=== PATIENT | female | born 1940 | race Caucasian/White ===

== ENCOUNTER 2019-06-29 13:17 | Outpatient (CLI) | payer MEDICARE, BC ==
[~2019-06-29 13:17] MED LIST: ACIDOPHILUS100 MG PO; BETA1TAB20 PO; BIOT1CAP3 PO; CALC600T14 PO; CELE-193 PO; CYAN1TAB41 PO; DOXY40CP; EPIN0.3P3 IM; ERGO500014 PO; ESTR1.5T5 PO; GINK120C PO; GLUC-133 PO; HYDR-3964 PO; HYDR12.5 PO; LORA10TA7 PO; MAGN400C PO; MULT-1085 PO; OMEG500C PO; PREN1TAB75 PO; TERB250T4 PO
[2019-06-29 14:16] LABS: BASOPHILS # (AUTO) 0.1 X10'3 (0-0.2); BASOPHILS % (AUTO) 0.8 % (0-1); EOSINOPHILS # (AUTO) 0.2 X10'3 (0-0.9); EOSINOPHILS % (AUTO) 1.8 % (0-6); HEMATOCRIT 37.4 % (35.0-45.0); HEMOGLOBIN 12.3 g/dl (12.0-16.0); LYMPHOCYTES # (AUTO) 1.4 X10'3 (1.1-4.8); LYMPHOCYTES % (AUTO) 14.6 % (21-51); MEAN CORPUSCULAR HEMOGLOBIN 28.5 PG (27.0-31.0); MEAN CORPUSCULAR HGB CONC 32.8 g/dL (33.0-36.5); MEAN CORPUSCULAR VOLUME 86.8 FL (78-98); MEAN PLATELET VOLUME 9.5 FL (7.4-10.4); MONOCYTES # (AUTO) 0.9 X10'3 (0-0.9); MONOCYTES % (AUTO) 9.4 % (2-12); NEUTROPHILS # (AUTO) 6.8 X10'3 (1.8-7.7); NEUTROPHILS % (AUTO) 73.4 % (42-75); PLATELET COUNT 260 X10'3 (140-440); RED BLOOD COUNT 4.31 X10'6 (4.20-5.60); RED CELL DISTRIBUTION WIDTH 13.8 % (11.5-14.5); WHITE BLOOD COUNT 9.3 X10'3 (4.5-11.0)
[2019-06-29 14:34] LABS: ALANINE AMINOTRANSFERASE 113 U/L (12-78); ALBUMIN 3.3 G/DL (3.4-5.0); ALBUMIN/GLOBULIN RATIO 1.1 (1.1-1.5); ALKALINE PHOSPHATASE 216 IU/L (46-116); ANION GAP 4 (8-16); ASPARTATE AMINO TRANSFERASE 46 U/L (10-37); BILIRUBIN,TOTAL 0.4 MG/DL (0.1-1.0); BLOOD UREA NITROGEN 23 MG/DL (7-18); BUN/CREATININE RATIO 26.4 (6.6-38.0); CALCIUM 8.5 MG/DL (8.5-10.1); CHLORIDE 106 MMOL/L (99-107); CREATININE 0.87 MG/DL (0.40-0.90); GLUCOSE 88 MG/DL (70-104); POTASSIUM 3.9 MMOL/L (3.5-5.1); SODIUM 143 MMOL/L (135-145); TOTAL CARBON DIOXIDE 33.4 MMOL/L (24-32); TOTAL PROTEIN 6.4 G/DL (6.4-8.2); eGFR 63 ML/MIN
== END 2019-06-29 23:59 | disposition home or self-care (01) ==
LOC: LAB 13:17
PROVIDERS: ATTEND Phlebology
DX: Z01.812 Encounter for preprocedural laboratory examination (principal); D05.11 Intraductal carcinoma in situ of right breast
CPT/HCPCS: 36415; 80053; 85025

== ENCOUNTER 2019-10-21 17:33 | Inpatient (IN) | payer MEDICARE, BC ==
[~2019-10-21] VITALS: Ht 165.1 cm; Wt 81.0 kg
[2019-10-21 19:22] LABS: BASOPHILS % (AUTO) 0.5 % (0-1); EOSINOPHILS % (AUTO) 0.1 % (0-6); HEMOGLOBIN 11.7 g/dl (12.0-16.0); LYMPHOCYTES # (AUTO) 0.4 X10'3 (1.1-4.8); LYMPHOCYTES % (AUTO) 5.9 % (21-51); MEAN CORPUSCULAR HEMOGLOBIN 28.7 PG (27.0-31.0); MEAN CORPUSCULAR HGB CONC 33.4 g/dL (33.0-36.5); MEAN CORPUSCULAR VOLUME 85.9 FL (78-98); MEAN PLATELET VOLUME 8.8 FL (7.4-10.4); MONOCYTES # (AUTO) 0.3 X10'3 (0-0.9); MONOCYTES % (AUTO) 4.3 % (2-12); NEUTROPHILS # (AUTO) 6.8 X10'3 (1.8-7.7); NEUTROPHILS % (AUTO) 89.2 % (42-75); PLATELET COUNT 221 X10'3 (140-440); RED BLOOD COUNT 4.07 X10'6 (4.20-5.60); RED CELL DISTRIBUTION WIDTH 14.2 % (11.5-14.5); WHITE BLOOD COUNT 7.6 X10'3 (4.5-11.0)
--- NOTE | 2019-10-21 19:26 | NUR ---
pt resting in bed comfortably. pt denies chest pain. certified medical technician assistant in room with pt at this time. Pt has no other request or concerns at this time.
[2019-10-21 19:35] LABS: ALANINE AMINOTRANSFERASE 20 U/L (12-78); ALBUMIN 3.2 G/DL (3.4-5.0); ALBUMIN/GLOBULIN RATIO 1.1 (1.1-1.5); ALKALINE PHOSPHATASE 133 IU/L (46-116); ANION GAP 7 (8-16); ASPARTATE AMINO TRANSFERASE 24 U/L (10-37); BILIRUBIN,TOTAL 0.4 MG/DL (0.1-1.0); BLOOD UREA NITROGEN 17 MG/DL (7-18); BUN/CREATININE RATIO 23.6 (6.6-38.0); CALCIUM 8.5 MG/DL (8.5-10.1); CHLORIDE 107 MMOL/L (99-107); CREATININE 0.72 MG/DL (0.40-0.90); GLUCOSE 119 MG/DL (70-104); POTASSIUM 4.2 MMOL/L (3.5-5.1); SODIUM 143 MMOL/L (135-145); TOTAL CARBON DIOXIDE 28.7 MMOL/L (24-32); TOTAL PROTEIN 6.1 G/DL (6.4-8.2); eGFR 78 ML/MIN
[2019-10-21 19:39] LABS: TROPONIN I < 0.04 NG/ML (0.0-0.05)
[2019-10-21 20:56] LABS: CLARITY,URINE CLEAR (Clear); COLOR,URINE YELLOW (Yellow); GLUCOSE, URINE NEGATIVE (Neg); KETONES,URINE 15 mg/dl (Neg); LEUKOCYTE ESTERASE ,URINE NEGATIVE (Neg); NITRITES, URINE NEGATIVE (Neg); OCCULT BLOOD,URINE NEGATIVE (Neg); PH,URINE 5.5 (4.8-8.0); PROTEIN,URINE NEGATIVE (Neg); UROBILINOGEN,URINE 0.2 E.U/dL (0.2-1.0)
[2019-10-21 20:58] LABS: UA COLLECTION TYPE CLN CATCH MIDSTREAM
--- NOTE | 2019-10-21 21:15 | NUR ---
pt has been placed up for admission - she continues to have episodes where her heart rate dips into the 40's - pt remains on school lunch monitor. will continue to monitor.
[2019-10-21] MEDS ORDERED: TAMO20TA4 PO (21:29)
[2019-10-21] MEDS ORDERED: ASPI-1130 PO (21:29)
[2019-10-21] MEDS ORDERED: IBAN150T21 PO (21:29)
[2019-10-21] MEDS ORDERED: acetaminophen 325mg tablet PO PRN (23:30)
[2019-10-21] MEDS ORDERED: mag hydrox/Alum hydrox/simeth 30ml oral suspension PO PRN (23:30)
[2019-10-21] MEDS ORDERED: magnesium Cl slow-release 64mg tablet PO PRN (23:30)
[2019-10-21] MEDS ORDERED: potassium CL 10mEq/100ml bag 100 ML IV PRN ×2 (23:30)
[2019-10-21] MEDS ORDERED: potassium Cl 20 mEq SR tablet PO PRN ×2 (23:30)
[2019-10-21] MEDS ORDERED: ondansetron/PF 4mg/2ml inj IV PRN (23:30)
[2019-10-21] MEDS ORDERED: magnesium 4gm in 100ml NS 100 ML IV PRN (23:30)
[2019-10-21] MEDS ORDERED: magnesium 2GM in 50ml NS 50 ML IV PRN (23:30)
[2019-10-21] MEDS ORDERED: magnesium hydroxide 30ml (MOM) UD suspension PO PRN (23:30)
[2019-10-21] MEDS ORDERED: ergocalciferol (Vitamin D) 50,000 unit capsule PO SCH (23:30)
[2019-10-21] MEDS ORDERED: HYDROcodone/acetaminophen 5mg/325mg tablet PO PRN (23:30)
[2019-10-21 23:52] LABS: HEMOGLOBIN A1C 5.6 % (4.5-6.2)
--- NOTE | 2019-10-21 23:56 | NUR ---
NOTIFIED BY PHARMACY THAT MED REC WAS NOT CONSISTENT WITH PATIENT'S CURRENT PRESCRIPTIONS CONFIRMED WITH DR STEPHENS AND ORDERS CHANGED ACCORDINGLY
--- NOTE | 2019-10-22 00:02 | NUR ---
Patient in room . I have received report from Nancy REYES and had the opportunity to ask questions and assume patient care.
[2019-10-22 01:00] VITALS: BP 162/56
[2019-10-22 01:30] LABS: BASOPHILS # (AUTO) 0.1 X10'3 (0-0.2); BASOPHILS % (AUTO) 1.2 % (0-1); EOSINOPHILS % (AUTO) 0.3 % (0-6); HEMATOCRIT 35.5 % (35.0-45.0); LYMPHOCYTES # (AUTO) 0.9 X10'3 (1.1-4.8); LYMPHOCYTES % (AUTO) 12.4 % (21-51); MEAN CORPUSCULAR HEMOGLOBIN 28.8 PG (27.0-31.0); MEAN CORPUSCULAR VOLUME 84.7 FL (78-98); MEAN PLATELET VOLUME 8.6 FL (7.4-10.4); MONOCYTES # (AUTO) 0.7 X10'3 (0-0.9); MONOCYTES % (AUTO) 10.2 % (2-12); NEUTROPHILS # (AUTO) 5.5 X10'3 (1.8-7.7); NEUTROPHILS % (AUTO) 75.9 % (42-75); PLATELET COUNT 242 X10'3 (140-440); RED BLOOD COUNT 4.19 X10'6 (4.20-5.60); RED CELL DISTRIBUTION WIDTH 14.4 % (11.5-14.5); WHITE BLOOD COUNT 7.2 X10'3 (4.5-11.0)
[2019-10-22 02:00] VITALS: BP 104/56
--- NOTE | 2019-10-22 06:29 | NUR ---
Patient in room PCU 3017. I have received report from Destiny REYES and had the opportunity to ask questions and assume patient care.
--- NOTE | 2019-10-22 06:29 | NUR ---
Problems reprioritized. Patient report given, questions answered & plan of care reviewed with Louie REYES.
[2019-10-22 07:00] VITALS: BP 155/58
[2019-10-22] MEDS: HYDROchlorothiazide 25mg tablet PO SCH (07:22)
[2019-10-22] MEDS: aspirin 81mg tablet.DR PO SCH (07:22)
[2019-10-22] MEDS: multivitamins, therapeutics tablet PO SCH (07:22)
[2019-10-22] MEDS: celeCOXIB 100mg capsule PO SCH (07:23)
[2019-10-22] MEDS: magnesium oxide 400mg tablet PO SCH (07:23)
[2019-10-22] MEDS: heparin, porcine 5000 units/ml vial SQ SCH ×2 (07:24→21:04)
[2019-10-22] MEDS ORDERED: HYDROchlorothiazide 12.5mg capsule PO SCH (08:00)
[2019-10-22] MEDS: K and/or MAG REPLACEMENT MC SCH (08:00)
[2019-10-22 10:22] LABS: ALANINE AMINOTRANSFERASE 21 U/L (12-78); ALBUMIN/GLOBULIN RATIO 1.1 (1.1-1.5); ALKALINE PHOSPHATASE 122 IU/L (46-116); ANION GAP 8 (8-16); ASPARTATE AMINO TRANSFERASE 20 U/L (10-37); BILIRUBIN,TOTAL 0.4 MG/DL (0.1-1.0); BLOOD UREA NITROGEN 15 MG/DL (7-18); BUN/CREATININE RATIO 15.8 (6.6-38.0); CALCIUM 8.5 MG/DL (8.5-10.1); CHLORIDE 108 MMOL/L (99-107); CREATININE 0.95 MG/DL (0.40-0.90); GLUCOSE 151 MG/DL (70-104); SODIUM 143 MMOL/L (135-145); TOTAL CARBON DIOXIDE 26.6 MMOL/L (24-32); TOTAL PROTEIN 5.8 G/DL (6.4-8.2); eGFR 57 ML/MIN
[2019-10-22 10:25] LABS: CHOL/HDL RATIO 1.8 (0.00-4.99); CHOLESTEROL 177 MG/DL (0-200); HDL CHOLESTEROL 101 MG/DL (35-60); LDL CHOLESTEROL 63 MG/DL (50-100); TRIGLYCERIDES 22 MG/DL (20-135)
[2019-10-22 10:37] LABS: POTASSIUM 3.7 MMOL/L (3.5-5.1)
[2019-10-22 11:00] VITALS: BP 157/56
[2019-10-22 15:00] VITALS: BP 144/53
--- NOTE | 2019-10-22 19:05 | NUR ---
Problems reprioritized. Patient report given, questions answered & plan of care reviewed with Sina REYES.
--- NOTE | 2019-10-22 19:30 | NUR ---
The patient went for [facility] Cath. Patient was alert, oriented x4. Not on any kind of distress. Gave report to energy systems laboratory director.
[2019-10-22 20:00] VITALS: BP 155/56
[2019-10-23] VITALS (15 sets, daily range): BP systolic 137–180; BP diastolic 41–88
[2019-10-23 05:48] LABS: BASOPHILS % (AUTO) 0.3 % (0-1); EOSINOPHILS # (AUTO) 0.2 X10'3 (0-0.9); EOSINOPHILS % (AUTO) 3.4 % (0-6); HEMATOCRIT 37.7 % (35.0-45.0); HEMOGLOBIN 12.8 g/dl (12.0-16.0); LYMPHOCYTES % (AUTO) 18.8 % (21-51); MEAN CORPUSCULAR HEMOGLOBIN 28.7 PG (27.0-31.0); MEAN CORPUSCULAR VOLUME 84.4 FL (78-98); MEAN PLATELET VOLUME 8.8 FL (7.4-10.4); MONOCYTES # (AUTO) 0.7 X10'3 (0-0.9); MONOCYTES % (AUTO) 13.8 % (2-12); NEUTROPHILS # (AUTO) 3.3 X10'3 (1.8-7.7); NEUTROPHILS % (AUTO) 63.7 % (42-75); PLATELET COUNT 242 X10'3 (140-440); RED BLOOD COUNT 4.46 X10'6 (4.20-5.60); RED CELL DISTRIBUTION WIDTH 14.5 % (11.5-14.5); WHITE BLOOD COUNT 5.2 X10'3 (4.5-11.0)
[2019-10-23 06:20] LABS: ALANINE AMINOTRANSFERASE 20 U/L (12-78); ALBUMIN 3.1 G/DL (3.4-5.0); ALBUMIN/GLOBULIN RATIO 1.1 (1.1-1.5); ALKALINE PHOSPHATASE 118 IU/L (46-116); ANION GAP 7 (8-16); ASPARTATE AMINO TRANSFERASE 21 U/L (10-37); BILIRUBIN,TOTAL 0.5 MG/DL (0.1-1.0); BLOOD UREA NITROGEN 16 MG/DL (7-18); BUN/CREATININE RATIO 21.6 (6.6-38.0); CALCIUM 8.8 MG/DL (8.5-10.1); CHLORIDE 107 MMOL/L (99-107); CREATININE 0.74 MG/DL (0.40-0.90); GLUCOSE 90 MG/DL (70-104); MAGNESIUM 2.1 MG/DL (1.5-2.4); POTASSIUM 3.6 MMOL/L (3.5-5.1); SODIUM 145 MMOL/L (135-145); TOTAL CARBON DIOXIDE 31.1 MMOL/L (24-32); eGFR 76 ML/MIN
--- NOTE | 2019-10-23 06:33 | NUR ---
Problems reprioritized. Patient report given to JackelynRN, questions answered & plan of care reviewed with .
--- NOTE | 2019-10-23 06:44 | NUR ---
Patient in room MED 315. I have received report from AMY Boyd and had the opportunity to ask questions and assume patient care.
[2019-10-23] MEDS: heparin, porcine 5000 units/ml vial SQ SCH ×2 (07:32→21:08)
[2019-10-23] MEDS: celeCOXIB 100mg capsule PO SCH (07:32)
[2019-10-23] MEDS: multivitamins, therapeutics tablet PO SCH (07:32)
[2019-10-23] MEDS: aspirin 81mg tablet.DR PO SCH (07:32)
[2019-10-23] MEDS: magnesium oxide 400mg tablet PO SCH (07:33)
[2019-10-23] MEDS: HYDROchlorothiazide 25mg tablet PO SCH (07:33)
[2019-10-23] MEDS: K and/or MAG REPLACEMENT MC SCH (08:00)
[2019-10-23] MEDS: amLODIPine 5mg tablet PO SCH (10:07)
[2019-10-23] MEDS ORDERED: LIDOcaine 0.5% W/epiNEPHrine 1:200,000 50ml vial IJ ONE (16:56)
[2019-10-23] MEDS ORDERED: ceFAZolin 1000mg inj ONE ×3 (16:56→17:38)
[2019-10-23] MEDS ORDERED: hydrALAZINE 20mg/ml inj. IV PRN (17:25)
[2019-10-23] MEDS ORDERED: fentaNYL/PF 50MCG/1 ML 2ML syringe IV PRN ×2 (17:25)
[2019-10-23] MEDS ORDERED: ringers solution, lacted 1,000 ML IV SCH (17:25)
[2019-10-23] MEDS ORDERED: ondansetron/PF 4mg/2ml inj IV PRN (17:25)
[2019-10-23] MEDS ORDERED: enalaprilat dihydrate 2.5mg/2ml vial IV PRN (17:25)
[2019-10-23] MEDS ORDERED: morphine 4 MG/ML inj SYRINge IV PRN ×2 (17:25)
[2019-10-23] MEDS ORDERED: fentaNYL/PF 50MCG/1 ML 2ML syringe ONE ×2 (17:35)
[2019-10-23] MEDS ORDERED: MIDAZolam 5mg/ml 2ml vial ONE (17:38)
--- NOTE | 2019-10-23 17:44 | NUR ---
pt. taken to pacemaker procedure at 1700.
--- NOTE | 2019-10-23 18:43 | NUR ---
Problems reprioritized. Patient report given, questions answered & plan of care reviewed with AMY Boyd.
--- NOTE | 2019-10-23 18:43 | NUR ---
Patient in room MED 315. I have received report from Cait Anand and had the opportunity to ask questions and assume patient care.
--- NOTE | 2019-10-23 18:48 | NUR ---
Received from OR via SURGICAL BED , accompanied by Anesthesiologist KAUSHIK and report given by Anesthesiolgist. PATIENT WITH 20G PIV IN LEFT UE RUNNING LR AT 100. DENIES PAIN. LEFT CHEST WALL DRESSING IS CDI. PATIENT WITH 10L MASK ON WITH NO C.O. PAIN AT THIS TIME. SCDS DONNED. Addendum: 10/23/19 at 1859 by Hermes Gruber RN, RN Amended: Links added.
--- NOTE | 2019-10-23 19:18 | NUR ---
ALL CRITERIA FOR TRANSFER TO THE FLOOR HAS BEEN ACHIEVED. VSS. BED LOW, CALL LIGHT AND VS. SET IN PLACE. RN PRESENT TO ACCEPT CARE. PATIENT RESTING COMFORTABLY IN BED. BELONGINGS SENT WITH PATIENT. DRESSINGS CDI. AMY GANT PRESENT TO ACCEPT CARE. VSS. PATIENT ALERT AND TALKATIVE. CARE ASSUMED BY AMY GANT. Addendum: 10/23/19 at 1921 by Hermes Quiroz - AMY REYES Amended: Links added.
[2019-10-24] VITALS (8 sets, daily range): BP systolic 108–166; BP diastolic 45–82
[2019-10-24 05:12] LABS: BASOPHILS # (AUTO) 0.1 X10'3 (0-0.2); BASOPHILS % (AUTO) 0.8 % (0-1); EOSINOPHILS # (AUTO) 0.1 X10'3 (0-0.9); LYMPHOCYTES # (AUTO) 0.7 X10'3 (1.1-4.8); LYMPHOCYTES % (AUTO) 11.7 % (21-51); MEAN CORPUSCULAR HEMOGLOBIN 28.6 PG (27.0-31.0); MEAN CORPUSCULAR HGB CONC 33.3 g/dL (33.0-36.5); MEAN CORPUSCULAR VOLUME 85.9 FL (78-98); MEAN PLATELET VOLUME 8.8 FL (7.4-10.4); MONOCYTES # (AUTO) 0.7 X10'3 (0-0.9); MONOCYTES % (AUTO) 11.6 % (2-12); NEUTROPHILS # (AUTO) 4.7 X10'3 (1.8-7.7); NEUTROPHILS % (AUTO) 73.9 % (42-75); PLATELET COUNT 226 X10'3 (140-440); RED BLOOD COUNT 4.54 X10'6 (4.20-5.60); RED CELL DISTRIBUTION WIDTH 14.3 % (11.5-14.5); WHITE BLOOD COUNT 6.4 X10'3 (4.5-11.0)
[2019-10-24 05:41] LABS: ALANINE AMINOTRANSFERASE 16 U/L (12-78); ALKALINE PHOSPHATASE 111 IU/L (46-116); ANION GAP 7 (8-16); ASPARTATE AMINO TRANSFERASE 20 U/L (10-37); BILIRUBIN,TOTAL 0.5 MG/DL (0.1-1.0); BLOOD UREA NITROGEN 11 MG/DL (7-18); BUN/CREATININE RATIO 18.3 (6.6-38.0); CALCIUM 8.5 MG/DL (8.5-10.1); CHLORIDE 106 MMOL/L (99-107); GLUCOSE 88 MG/DL (70-104); POTASSIUM 3.6 MMOL/L (3.5-5.1); SODIUM 143 MMOL/L (135-145); TOTAL CARBON DIOXIDE 29.7 MMOL/L (24-32); TOTAL PROTEIN 5.9 G/DL (6.4-8.2); eGFR > 90 ML/MIN
--- NOTE | 2019-10-24 06:30 | NUR ---
Patient in room MED 315. I have received report from Oliver REYES and had the opportunity to ask questions and assume patient care.
--- NOTE | 2019-10-24 06:35 | NUR ---
Problems reprioritized. Patient report given, questions answered & plan of care reviewed with Desirae REYES.
[2019-10-24] MEDS: amLODIPine 5mg tablet PO SCH (07:31)
[2019-10-24] MEDS: HYDROchlorothiazide 25mg tablet PO SCH (07:31)
[2019-10-24] MEDS: aspirin 81mg tablet.DR PO SCH (07:31)
[2019-10-24] MEDS: multivitamins, therapeutics tablet PO SCH (07:31)
[2019-10-24] MEDS: magnesium oxide 400mg tablet PO SCH (07:31)
[2019-10-24] MEDS: celeCOXIB 100mg capsule PO SCH (07:31)
[2019-10-24] MEDS: K and/or MAG REPLACEMENT MC SCH (07:33)
[2019-10-24] MEDS: heparin, porcine 5000 units/ml vial SQ SCH ×2 (07:33→20:23)
--- NOTE | 2019-10-24 12:39 | NUR ---
PAGER ID: [phone] MESSAGE: 315: MONE - S/P PPM. OK to d/c heparin and start SCDs? dr. Medina not answering. keiry Merrill [phone]
[2019-10-24] MEDS: lisinopril 5mg tablet PO SCH (13:07)
--- NOTE | 2019-10-24 18:00 | NUR ---
Patient in room MED 315. I have received report from Desirae REYES and had the opportunity to ask questions and assume patient care.
--- NOTE | 2019-10-24 18:20 | NUR ---
Problems reprioritized. Patient report given, questions answered & plan of care reviewed with Keri REYES.
--- NOTE | 2019-10-24 23:12 | NUR ---
TOOL AND DIE DESIGNER NOTIFIED PATIENT PLACED ON TELE #[phone]
[2019-10-25 02:00] VITALS: BP 127/44
[2019-10-25 03:27] LABS: BASOPHILS # (AUTO) 0.1 X10'3 (0-0.2); BASOPHILS % (AUTO) 0.8 % (0-1); EOSINOPHILS # (AUTO) 0.2 X10'3 (0-0.9); EOSINOPHILS % (AUTO) 1.7 % (0-6); HEMATOCRIT 37.5 % (35.0-45.0); HEMOGLOBIN 12.5 g/dl (12.0-16.0); LYMPHOCYTES # (AUTO) 0.9 X10'3 (1.1-4.8); LYMPHOCYTES % (AUTO) 10.5 % (21-51); MEAN CORPUSCULAR HEMOGLOBIN 28.5 PG (27.0-31.0); MEAN CORPUSCULAR HGB CONC 33.3 g/dL (33.0-36.5); MEAN CORPUSCULAR VOLUME 85.4 FL (78-98); MEAN PLATELET VOLUME 8.6 FL (7.4-10.4); MONOCYTES % (AUTO) 10.8 % (2-12); NEUTROPHILS # (AUTO) 6.8 X10'3 (1.8-7.7); NEUTROPHILS % (AUTO) 76.2 % (42-75); PLATELET COUNT 223 X10'3 (140-440); RED BLOOD COUNT 4.39 X10'6 (4.20-5.60); RED CELL DISTRIBUTION WIDTH 14.3 % (11.5-14.5); WHITE BLOOD COUNT 8.9 X10'3 (4.5-11.0)
[2019-10-25 03:35] LABS: CHLORIDE 106 MMOL/L (99-107); MAGNESIUM 2.3 MG/DL (1.5-2.4); POTASSIUM 3.5 MMOL/L (3.5-5.1); SODIUM 142 MMOL/L (135-145)
[2019-10-25 03:55] LABS: ALANINE AMINOTRANSFERASE 15 U/L (12-78); ALBUMIN 2.9 G/DL (3.4-5.0); ALKALINE PHOSPHATASE 113 IU/L (46-116); ANION GAP 7 (8-16); ASPARTATE AMINO TRANSFERASE 17 U/L (10-37); BILIRUBIN,TOTAL 0.4 MG/DL (0.1-1.0); BLOOD UREA NITROGEN 23 MG/DL (7-18); BUN/CREATININE RATIO 30.7 (6.6-38.0); CALCIUM 8.4 MG/DL (8.5-10.1); CREATININE 0.75 MG/DL (0.40-0.90); GLUCOSE 102 MG/DL (70-104); TOTAL CARBON DIOXIDE 29.5 MMOL/L (24-32); TOTAL PROTEIN 5.7 G/DL (6.4-8.2); eGFR 75 ML/MIN
--- NOTE | 2019-10-25 06:00 | NUR ---
Problems reprioritized. Patient report given, questions answered & plan of care reviewed with BLANCA REYES.
--- NOTE | 2019-10-25 06:25 | NUR ---
Patient in room MED 315. I have received report from Keri REYES and had the opportunity to ask questions and assume patient care.
[2019-10-25 06:30] VITALS: BP 142/50
[2019-10-25] MEDS: magnesium oxide 400mg tablet PO SCH ×2 (08:00→08:10)
[2019-10-25] MEDS: K and/or MAG REPLACEMENT MC SCH (08:00)
[2019-10-25] MEDS: heparin, porcine 5000 units/ml vial SQ SCH (08:00)
[2019-10-25] MEDS: amLODIPine 5mg tablet PO SCH (08:10)
[2019-10-25] MEDS: multivitamins, therapeutics tablet PO SCH (08:10)
[2019-10-25] MEDS: HYDROchlorothiazide 25mg tablet PO SCH (08:10)
[2019-10-25] MEDS: celeCOXIB 100mg capsule PO SCH (08:10)
[2019-10-25] MEDS: lisinopril 5mg tablet PO SCH (08:10)
[2019-10-25] MEDS: aspirin 81mg tablet.DR PO SCH (08:10)
[2019-10-25] MEDS ORDERED: LISI-642 PO (10:10)
[2019-10-25] MEDS ORDERED: NOR5T PO (10:10)
[2019-10-25] MEDS ORDERED: CEPH500C5 PO (10:13)
[2019-10-25 11:00] VITALS: BP 114/47
--- NOTE | 2019-10-25 14:37 | NUR ---
Discussed discharge instructions with patient at this time, verbalized understanding. Discharged patient via W/C per [facility] staff via family private vehicle without event. Belongings sent with patient, IV dc'd, tele dc'd. Son at bedside to transport patient home. Eager to go home, confirmed medications were transmitted to [facility] [address]. Educated patient on need to buy BP cuff to check her blood pressure prior to medication administration. She will call for follow-up appointments with physicians.
[2019-10-27] MEDS ORDERED: ergocalciferol (Vitamin D) 50,000 unit capsule PO SCH (23:30)
== END 2019-10-25 14:37 | disposition home health service (06) | DRG 243 ==
LOC: ER 17:34 → ED HOLD 10-22 00:17 → CMPBEDREQ 10-22 00:21 → PCU 3S 10-22 01:00 → MED 3N 10-22 19:10
PROVIDERS: ADMIT Internal Medicine; ATTEND Family Medicine
PROC: 02H63JZ Insertion of Pacemaker Lead into Right Atrium, Percutaneous Approach (ICD-10-PCS; 2019-10-23)
PROC: 02HK3JZ Insertion of Pacemaker Lead into Right Ventricle, Percutaneous Approach (ICD-10-PCS; 2019-10-23)
PROC: 0JH606Z Insertion of Pacemaker, Dual Chamber into Chest Subcutaneous Tissue and Fascia, Open Approach (ICD-10-PCS; principal; 2019-10-23 17:30)
DX: I49.5 Sick sinus syndrome (principal); E44.0 Moderate protein-calorie malnutrition; C50.911 Malignant neoplasm of unspecified site of right female breast; I10 Essential (primary) hypertension; M81.0 Age-related osteoporosis without current pathological fracture; Z85.820 Personal history of malignant melanoma of skin; Z92.3 Personal history of irradiation; Z91.048 Other nonmedicinal substance allergy status
CPT/HCPCS: 36415; 71045; 71048; 80053; 80061; 81003; 82948; 83036; 83735; 84443; 84484; 85025; 87081; 93005; 93306; 97161; 97530; 99285; A4215; A6258; A7000; C1785; G0378; J0690; J1644; J2250; J3010; J7120

== ENCOUNTER 2020-04-15 16:52 | Emergency (ER) | payer MEDICARE, BC ==
[~2020-04-15] VITALS: Ht 165.1 cm; Wt 72.0 kg
[~2020-04-15 16:52] MED LIST changes: -ACIDOPHILUS100 MG PO; +ASPI-1130 PO; -BETA1TAB20 PO; -BIOT1CAP3 PO; -CALC600T14 PO; -CYAN1TAB41 PO; -DOXY40CP; -ESTR1.5T5 PO; -GINK120C PO; -GLUC-133 PO; -HYDR-3964 PO; +IBAN150T21 PO; +LISI-642 PO; -LORA10TA7 PO; +NOR5T PO; -OMEG500C PO; -PREN1TAB75 PO; +TAMO20TA4 PO; -TERB250T4 PO
[2020-04-15 18:29] LABS: BASOPHILS % (AUTO) 0.6 % (0-1); EOSINOPHILS # (AUTO) 0.1 X10'3 (0-0.9); EOSINOPHILS % (AUTO) 1.4 % (0-6); HEMATOCRIT 41.1 % (35.0-45.0); HEMOGLOBIN 13.6 g/dl (12.0-16.0); LYMPHOCYTES # (AUTO) 1.1 X10'3 (1.1-4.8); LYMPHOCYTES % (AUTO) 16.3 % (21-51); MEAN CORPUSCULAR HEMOGLOBIN 28.4 PG (27.0-31.0); MEAN CORPUSCULAR HGB CONC 33.1 g/dL (33.0-36.5); MEAN CORPUSCULAR VOLUME 85.8 FL (78-98); MEAN PLATELET VOLUME 9.3 FL (7.4-10.4); MONOCYTES # (AUTO) 0.6 X10'3 (0-0.9); MONOCYTES % (AUTO) 9.2 % (2-12); NEUTROPHILS # (AUTO) 4.7 X10'3 (1.8-7.7); NEUTROPHILS % (AUTO) 72.5 % (42-75); PLATELET COUNT 241 X10'3 (140-440); RED BLOOD COUNT 4.79 X10'6 (4.20-5.60); RED CELL DISTRIBUTION WIDTH 14.2 % (11.5-14.5); WHITE BLOOD COUNT 6.5 X10'3 (4.5-11.0)
[2020-04-15 18:46] LABS: ALANINE AMINOTRANSFERASE 17 U/L (12-78); ALBUMIN 3.8 G/DL (3.4-5.0); ALBUMIN/GLOBULIN RATIO 1.2 (1.1-1.5); ALKALINE PHOSPHATASE 133 IU/L (46-116); ANION GAP 7 (8-16); ASPARTATE AMINO TRANSFERASE 25 U/L (10-37); BILIRUBIN,TOTAL 0.4 MG/DL (0.1-1.0); BLOOD UREA NITROGEN 20 MG/DL (7-18); BUN/CREATININE RATIO 21.3 (6.6-38.0); CALCIUM 9.3 MG/DL (8.5-10.1); CHLORIDE 103 MMOL/L (99-107); CREATININE 0.94 MG/DL (0.40-0.90); GLUCOSE 104 MG/DL (70-104); POTASSIUM 3.5 MMOL/L (3.5-5.1); SODIUM 143 MMOL/L (135-145); TOTAL CARBON DIOXIDE 32.7 MMOL/L (24-32); TOTAL PROTEIN 7.1 G/DL (6.4-8.2); eGFR 58 ML/MIN
[2020-04-15 20:39] LABS: CLARITY,URINE CLEAR (Clear); COLOR,URINE YELLOW (Yellow); GLUCOSE, URINE NEGATIVE (Neg); KETONES,URINE NEGATIVE (Neg); LEUKOCYTE ESTERASE ,URINE NEGATIVE (Neg); NITRITES, URINE NEGATIVE (Neg); OCCULT BLOOD,URINE NEGATIVE (Neg); PROTEIN,URINE NEGATIVE (Neg); UA COLLECTION TYPE CLN CATCH MIDSTREAM; UROBILINOGEN,URINE 0.2 E.U/dL (0.2-1.0)
[2020-04-15 21:50] VITALS: BP 144/77
== END 2020-04-15 21:52 | disposition home or self-care (01) ==
LOC: ER 16:52
DX: I95.1 Orthostatic hypotension (principal); R42 Dizziness and giddiness; M81.0 Age-related osteoporosis without current pathological fracture; Z98.890 Other specified postprocedural states; Z91.048 Other nonmedicinal substance allergy status; Z88.8 Allergy status to other drugs, medicaments and biological substances; Z79.2 Long term (current) use of antibiotics; Z79.899 Other long term (current) drug therapy
CPT/HCPCS: 36415; 71045; 80053; 81003; 84484; 85025; 93005; 99285

== ENCOUNTER 2021-06-09 11:03 | Emergency (ER) | payer MEDICARE, BC ==
[~2021-06-09] VITALS: Ht 165.1 cm; Wt 79.6 kg
[~2021-06-09 11:03] MED LIST changes: -ASPI-1130 PO; +ASPI-1397 PO
[2021-06-09 11:14] VITALS: BP 169/67
== END 2021-06-09 18:58 | disposition left against medical advice (07) ==
LOC: ER 11:04
DX: R10.9 Unspecified abdominal pain (principal); Z53.21 Procedure and treatment not carried out due to patient leaving prior to being seen by health care provider

== ENCOUNTER 2021-08-01 09:35 | Day surgery (SDC) | payer MEDICARE, BC ==
[2021-07-26 16:57] LABS: BASOPHILS # (AUTO) 0.1 X10'3 (0-0.2); EOSINOPHILS # (AUTO) 0.1 X10'3 (0-0.9); EOSINOPHILS % (AUTO) 1.2 % (0-6); LYMPHOCYTES # (AUTO) 0.9 X10'3 (1.1-4.8); LYMPHOCYTES % (AUTO) 15.4 % (21-51); MEAN CORPUSCULAR HGB CONC 32.2 g/dL (33.0-36.5); MEAN CORPUSCULAR VOLUME 80.8 FL (78-98); MEAN PLATELET VOLUME 9.3 FL (7.4-10.4); MONOCYTES # (AUTO) 0.6 X10'3 (0-0.9); MONOCYTES % (AUTO) 10.3 % (2-12); NEUTROPHILS # (AUTO) 4.2 X10'3 (1.8-7.7); NEUTROPHILS % (AUTO) 72.1 % (42-75); PRE OP HEMATOCRIT 37.6 % (35.0-45.0); PRE OP HEMOGLOBIN 12.1 g/dL (12.0-16.0); PRE OP PLATELET COUNT 267 X10'3 (140-440); RED BLOOD COUNT 4.65 X10'6 (4.20-5.60); RED CELL DISTRIBUTION WIDTH 16.8 % (11.5-14.5)
[2021-07-26 17:15] LABS: ALBUMIN 3.6 G/DL (3.4-5.0); ALBUMIN/GLOBULIN RATIO 1.2 (1.1-1.5); ALKALINE PHOSPHATASE 119 IU/L (46-116); BLOOD UREA NITROGEN 15 MG/DL (7-18); CALCIUM 8.3 MG/DL (8.5-10.1); CHLORIDE 108 MMOL/L (99-107); CREATININE 0.79 MG/DL (0.40-0.90); PRE OP ALT 17 U/L (30-65); PRE OP ANION GAP 11 (8-16); PRE OP AST 23 U/L (10-37); PRE OP BILIRUB, TOTAL 0.9 MG/DL (0.0-1.0); PRE OP GLUCOSE 85 MG/DL (70-104); PRE OP SODIUM 146 MMOL/L (135-145); TOTAL CARBON DIOXIDE 27.1 MMOL/L (24-32); TOTAL PROTEIN 6.6 G/DL (6.4-8.2); eGFR 70 ML/MIN
[2021-07-26 17:26] LABS: PRE OP POTASSIUM 3.3 MMOL/L (3.4-5.1)
[~2021-08-01] VITALS: Ht 165.1 cm; Wt 81.0 kg
[2021-08-01] VITALS (8 sets, daily range): BP systolic 155–188; BP diastolic 52–89
[~2021-08-01 09:35] MED LIST changes: -CELE-193 PO; -EPIN0.3P3 IM; +FLEC100T PO; -IBAN150T21 PO; -LISI-642 PO; -MAGN400C PO; -NOR5T PO; +cefazolin/dext.iso 2gm/100ml IV ONE; +famotidine 20mg tablet PO ONE; +ringers solution, lacted 1,000 ML IV SCH
[2021-08-01] MEDS ORDERED: BUPIVAcaine/PF 2.5mg/ml (0.25%) 10ml vial ONE (12:30)
[2021-08-01] MEDS ORDERED: LIDOcaine 1% 30ml preserv. free vial ONE (12:30)
[2021-08-01 12:38] LABS: ALBUMIN 3.4 G/DL (3.4-5.0); ALBUMIN/GLOBULIN RATIO 1.1 (1.1-1.5); ALKALINE PHOSPHATASE 121 IU/L (46-116); BLOOD UREA NITROGEN 13 MG/DL (7-18); BUN/CREATININE RATIO 18.6 (6.6-38.0); CALCIUM 8.2 MG/DL (8.5-10.1); CHLORIDE 109 MMOL/L (99-107); PRE OP ALT 15 U/L (30-65); PRE OP ANION GAP 9 (8-16); PRE OP AST 17 U/L (10-37); PRE OP BILIRUB, TOTAL 0.8 MG/DL (0.0-1.0); PRE OP GLUCOSE 84 MG/DL (70-104); PRE OP SODIUM 149 MMOL/L (135-145); TOTAL PROTEIN 6.4 G/DL (6.4-8.2); eGFR 81 ML/MIN
[2021-08-01] MEDS ORDERED: sevoflurane 250ml liquid IH ONE (12:47)
[2021-08-01] MEDS ORDERED: propofol inj 20 ML IV ONE (12:50)
[2021-08-01] MEDS ORDERED: midazolam 1 mg/ML 2ml injection ONE (12:50)
[2021-08-01] MEDS ORDERED: fentaNYL/PF 50MCG/1 ML 2ML syringe ONE (12:50)
[2021-08-01] MEDS ORDERED: rocuronium 10mg/ml inj IV ONE (12:50)
[2021-08-01 12:53] LABS: PRE OP POTASSIUM 3.2 MMOL/L (3.4-5.1)
[2021-08-01] MEDS ORDERED: dexamethasone sod phosphate 4mg/ml inj. ONE (13:12)
[2021-08-01] MEDS ORDERED: morphine 4 MG/ML inj SYRINge IV PRN (13:35)
[2021-08-01] MEDS ORDERED: ringers solution, lacted 1,000 ML IV SCH (13:35)
[2021-08-01] MEDS ORDERED: meperidine/PF 25mg/ml syringe IV PRN ×3 (13:35)
[2021-08-01] MEDS ORDERED: morphine 2 MG/ML inj. syringe IV PRN (13:35)
[2021-08-01] MEDS ORDERED: ondansetron/PF 4mg/2ml inj IV PRN (13:35)
[2021-08-01] MEDS ORDERED: proCHLORperazine 10 MG/2 ml inj IV PRN (13:35)
[2021-08-01] MEDS ORDERED: ondansetron/PF 4mg/2ml inj ONE (13:59)
[2021-08-01] MEDS ORDERED: neostigmine methylsulfate 1 MG/ML 10ml vial ONE (14:00)
[2021-08-01] MEDS ORDERED: glycopyrrolate 0.2mg/ml inj ONE (14:01)
--- NOTE | 2021-08-01 14:20 | NUR ---
Received from OR via , accompanied by Anesthesiologist DR HARRIS and report given by Anesthesiolgist. AWAKENS TO VOICE. VITALS STABLE. DRESSINGS DI. QUAN PAIN. ABD SOFT.
[2021-08-01] MEDS ORDERED: HYDROcodone/acetaminophen 5mg/325mg tablet PO PRN ×2 (14:35)
--- NOTE | 2021-08-01 15:40 | NUR ---
AWAKE AND ORIENTED. VITALS STABLE. DRESSINGS DI. STATES PAIM I,PROVING. HOMEM WITH HER SPOUSE AT THIS TIME.
== END 2021-08-01 15:40 | disposition home or self-care (01) ==
LOC: PAS 09:35
PROVIDERS: ATTEND Surgery
DX: K43.2 Incisional hernia without obstruction or gangrene (principal); K40.91 Unilateral inguinal hernia, without obstruction or gangrene, recurrent; Z20.822 Contact with and (suspected) exposure to COVID-19; Z96.653 Presence of artificial knee joint, bilateral; Z90.49 Acquired absence of other specified parts of digestive tract; Z98.890 Other specified postprocedural states; Z87.891 Personal history of nicotine dependence; Z87.01 Personal history of pneumonia (recurrent); Z85.3 Personal history of malignant neoplasm of breast; Z95.0 Presence of cardiac pacemaker; Z88.8 Allergy status to other drugs, medicaments and biological substances; Z91.09 Other allergy status, other than to drugs and biological substances; Z79.82 Long term (current) use of aspirin; Z79.899 Other long term (current) drug therapy; Z90.11 Acquired absence of right breast and nipple
CPT/HCPCS: 36415; 49651; 49654; 80053; 82948; 85025; 93005; C1781; J1100; J2001; J2250; J2405; J2704; J2710; J3010; J3490; J7120; U0003; U0005; Z7506; Z7508; Z7512; A4215; A4618; A7000

== ENCOUNTER 2021-11-16 12:11 | Emergency (ER) | payer MEDICARE, BC ==
[~2021-11-16] VITALS: Ht 165.1 cm; Wt 70.0 kg
[~2021-11-16 12:11] MED LIST changes: -cefazolin/dext.iso 2gm/100ml IV ONE; -famotidine 20mg tablet PO ONE; -ringers solution, lacted 1,000 ML IV SCH
[2021-11-16 12:15] VITALS: BP 176/79
[2021-11-16] MEDS: ketorolac trometh. 30mg/ml inj. IM ONE (14:40)
== END 2021-11-16 14:47 | disposition home or self-care (01) ==
LOC: ER 12:11
DX: M25.551 Pain in right hip (principal); G89.29 Other chronic pain; Z85.3 Personal history of malignant neoplasm of breast; Z98.890 Other specified postprocedural states; Z88.8 Allergy status to other drugs, medicaments and biological substances; Z79.82 Long term (current) use of aspirin; Z79.899 Other long term (current) drug therapy
CPT/HCPCS: 96372; 99283; J1885

== ENCOUNTER 2022-04-17 15:41 | Emergency (ER) | payer MEDICARE, BC ==
[~2022-04-17] VITALS: Ht 165.1 cm; Wt 77.3 kg
[2022-04-17 16:01] VITALS: BP 185/80
[2022-04-17 16:20] LABS: BASOPHILS # (AUTO) 0.1 X10'3 (0-0.2); BASOPHILS % (AUTO) 0.8 % (0-1); EOSINOPHILS # (AUTO) 0.1 X10'3 (0-0.9); EOSINOPHILS % (AUTO) 1.4 % (0-6); HEMATOCRIT 39.6 % (35.0-45.0); HEMOGLOBIN 12.7 g/dl (12.0-16.0); LYMPHOCYTES # (AUTO) 1.2 X10'3 (1.1-4.8); MEAN CORPUSCULAR HGB CONC 32.1 g/dL (33.0-36.5); MEAN PLATELET VOLUME 8.8 FL (7.4-10.4); MONOCYTES # (AUTO) 0.8 X10'3 (0-0.9); MONOCYTES % (AUTO) 9.8 % (2-12); NEUTROPHILS # (AUTO) 6.3 X10'3 (1.8-7.7); PLATELET COUNT 282 X10'3 (140-440); RED BLOOD COUNT 5.08 X10'6 (4.20-5.60); RED CELL DISTRIBUTION WIDTH 15.8 % (11.5-14.5); WHITE BLOOD COUNT 8.6 X10'3 (4.5-11.0)
[2022-04-17 16:21] LABS: CLARITY,URINE SLIGHTLY CLOUDY (Clear); COLOR,URINE YELLOW (Yellow); GLUCOSE, URINE NEGATIVE (Neg); KETONES,URINE NEGATIVE (Neg); LEUKOCYTE ESTERASE ,URINE SMALL (Neg); NITRITES, URINE NEGATIVE (Neg); OCCULT BLOOD,URINE NEGATIVE (Neg); PH,URINE 5.5 (4.8-8.0); PROTEIN,URINE NEGATIVE (Neg); UROBILINOGEN,URINE 0.2 E.U/dL (0.2-1.0)
[2022-04-17 16:29] LABS: UA COLLECTION TYPE CLN CATCH MIDSTREAM
[2022-04-17 16:33] LABS: BACTERIA,URINE FEW /HPF (Neg); SQUAMOUS EPITHELIAL CELL,UR FEW /LPF (FEW); TRANSITIONAL EPI CELLS,URINE FEW /HPF
[2022-04-17 16:35] LABS: RBC,URINE 0-2 /HPF (0-2)
[2022-04-17 16:37] LABS: WBC CLUMPS,URINE FEW /HPF (NEGATIVE)
[2022-04-17 16:42] LABS: ALANINE AMINOTRANSFERASE 13 U/L (12-78); ALBUMIN 3.6 G/DL (3.4-5.0); ALBUMIN/GLOBULIN RATIO 1.1 (1.1-1.5); ALKALINE PHOSPHATASE 167 IU/L (46-116); ANION GAP 7 (8-16); ASPARTATE AMINO TRANSFERASE 18 U/L (10-37); BILIRUBIN,TOTAL 0.4 MG/DL (0.1-1.0); BLOOD UREA NITROGEN 25 MG/DL (7-18); BUN/CREATININE RATIO 29.8 (6.6-38.0); CALCIUM 8.5 MG/DL (8.5-10.1); CHLORIDE 106 MMOL/L (99-107); CREATININE 0.84 MG/DL (0.40-0.90); GLUCOSE 88 MG/DL (70-104); LIPASE 348 U/L (73-393); POTASSIUM 3.9 MMOL/L (3.5-5.1); SODIUM 142 MMOL/L (135-145); TOTAL CARBON DIOXIDE 28.8 MMOL/L (24-32); eGFR 65 ML/MIN
--- NOTE | 2022-04-21 13:27 | NUR ---
PT CALLED REGARDING VISIT/LABS ON 04/17/22. PT LWOBS HOWEVER UA CAME BACK POSITIVE FOR UTI AND PT WAS INFORMED THAT AN ABX WAS NEEDED. PT REQUESTED THAT THE RX BE CALLED INTO [facility] ON [address]. MACROBID [id number], 1 TAB PO BID x7 DAYS #14 WAS CALLED INTO [facility] MESSAGE LINE.
== END 2022-04-17 20:08 | disposition left against medical advice (07) ==
LOC: ER 15:41
DX: R10.84 Generalized abdominal pain (principal); Z53.21 Procedure and treatment not carried out due to patient leaving prior to being seen by health care provider
CPT/HCPCS: 36415; 80053; 81001; 83690; 85025; 87077; 87088; 87186

== ENCOUNTER 2023-05-17 14:25 | Emergency (ER) | payer MEDICARE, BC ==
[~2023-05-17] VITALS: Ht 167.6 cm; Wt 80.0 kg
[2023-05-17 15:01] VITALS: BP 106/48
[2023-05-17 15:42] LABS: BASOPHILS # (AUTO) 0.1 X10'3 (0-0.2); BASOPHILS % (AUTO) 0.7 % (0-1); EOSINOPHILS % (AUTO) 0.4 % (0-6); HEMATOCRIT 35.5 % (35.0-45.0); HEMOGLOBIN 11.3 g/dl (12.0-16.0); LYMPHOCYTES # (AUTO) 0.9 X10'3 (1.1-4.8); LYMPHOCYTES % (AUTO) 7.4 % (21-51); MEAN CORPUSCULAR HEMOGLOBIN 25.7 PG (27.0-31.0); MEAN CORPUSCULAR HGB CONC 31.7 g/dL (33.0-36.5); MEAN CORPUSCULAR VOLUME 81.1 FL (78-98); MEAN PLATELET VOLUME 8.9 FL (7.4-10.4); MONOCYTES # (AUTO) 1.1 X10'3 (0-0.9); MONOCYTES % (AUTO) 9.1 % (2-12); NEUTROPHILS # (AUTO) 9.8 X10'3 (1.8-7.7); NEUTROPHILS % (AUTO) 82.4 % (42-75); PLATELET COUNT 310 X10'3 (140-440); RED BLOOD COUNT 4.38 X10'6 (4.20-5.60); RED CELL DISTRIBUTION WIDTH 16.3 % (11.5-14.5)
[2023-05-17 15:56] LABS: ALANINE AMINOTRANSFERASE 13 U/L (12-78); ALBUMIN/GLOBULIN RATIO 0.9 (1.1-1.5); ALKALINE PHOSPHATASE 122 IU/L (46-116); ANION GAP 7 (8-16); ASPARTATE AMINO TRANSFERASE 21 U/L (10-37); BILIRUBIN,TOTAL 0.3 MG/DL (0.1-1.0); BLOOD UREA NITROGEN 21 MG/DL (7-18); BUN/CREATININE RATIO 17.4 (10.0-20.0); CALCIUM 8.3 MG/DL (8.5-10.1); CHLORIDE 106 MMOL/L (99-107); CREATININE 1.21 MG/DL (0.40-0.90); GLUCOSE 78 MG/DL (70-104); MAGNESIUM 2.3 MG/DL (1.5-2.4); POTASSIUM 3.8 MMOL/L (3.5-5.1); SODIUM 142 MMOL/L (135-145); TOTAL CARBON DIOXIDE 29.3 MMOL/L (24-32); TOTAL PROTEIN 6.3 G/DL (6.4-8.2); eGFR 43 ML/MIN
[2023-05-17 18:17] LABS: CLARITY,URINE CLOUDY (Clear); COLOR,URINE YELLOW (Yellow); GLUCOSE, URINE NEGATIVE (Neg); KETONES,URINE NEGATIVE (Neg); LEUKOCYTE ESTERASE ,URINE TRACE (Neg); NITRITES, URINE POSITIVE (Neg); OCCULT BLOOD,URINE TRACE-INTACT (Neg); PH,URINE 5.5 (4.8-8.0); PROTEIN,URINE TRACE mg/dl (Neg)
[2023-05-17 18:18] LABS: UA COLLECTION TYPE CLN CATCH MIDSTREAM
[2023-05-17 18:24] LABS: RBC,URINE 0-2 /HPF (0-2); WBC,URINE 50-100 /HPF (0-4)
[2023-05-17 18:25] LABS: BACTERIA,URINE 4+ /HPF (Neg); MUCUS STRANDS NONE SEEN /LPF (Neg); SQUAMOUS EPITHELIAL CELL,UR FEW /LPF (FEW); YEAST FEW /HPF (NEGATIVE)
[2023-05-17] MEDS ORDERED: cephalexin 250mg capsule PO ONE (18:25)
[2023-05-17] MEDS ORDERED: CEFD300C3 PO (18:28)
[2023-05-17] MEDS ORDERED: OLANZapine 2.5MG tablet PO STA (18:42)
[2023-05-17] MEDS ORDERED: loperamide 2mg capsule PO ONE (18:50)
--- NOTE | 2023-05-17 19:20 | NUR ---
Patient given applesauce for PO challenge. No report of Nausea or vomiting.
== END 2023-05-17 20:17 | disposition home or self-care (01) ==
LOC: ER 14:26
DX: N39.0 Urinary tract infection, site not specified (principal); F03.90 Unspecified dementia, unspecified severity, without behavioral disturbance, psychotic disturbance, mood disturbance, and anxiety; F91.1 Conduct disorder, childhood-onset type; R45.1 Restlessness and agitation; M81.0 Age-related osteoporosis without current pathological fracture; Z85.3 Personal history of malignant neoplasm of breast; Z98.890 Other specified postprocedural states; Z79.82 Long term (current) use of aspirin; Z88.8 Allergy status to other drugs, medicaments and biological substances; Z88.7 Allergy status to serum and vaccine; Z91.048 Other nonmedicinal substance allergy status; Z79.899 Other long term (current) drug therapy
CPT/HCPCS: 36415; 80053; 81001; 83735; 85025; 99284